=== PATIENT | female | born 1975 | race Two or more races ===

== ENCOUNTER 2019-08-20 22:41 | Emergency (ER) | payer OTHER ==
[2019-08-20 23:00] VITALS: BP 112/69; PULSE 72; TEMP 98.3; BMI 27.4
--- NOTE | 2019-08-21 00:53 | PDOC ---
Documentation entered by Mika Franco SCRIBE, acting as scribe for Elva Goldberg MD. Elva Goldberg MD: This documentation has been prepared by the jeanaibeSalvador Daniel, SCRIBE, under my direction and personally reviewed by me in its entirety. I confirm that the documentation accurately reflects all work, treatment, procedures, and medical decision making performed by me. History of Present Illness - General Chief Complaint: Vaginal Bleeding Stated Complaint: MISCARRIAGE Time Seen by Provider: 08/21/19 00:13 History Source: Patient Exam Limitations: No Limitations - History of Present Illness Initial Comments: 08/21/19 00:31 The patient is a 44 year old A1 female with a past medical history of myomectomy here today for evaluation of vaginal bleeding. The patient reports that she noticed some red spotting after wiping a couple of days ago but became concerned when she saw some blood in the toilet bowl today. She also notes some abdominal cramping. The patient reports that she is approximately 7 weeks and that her LMP was on 06/29. Patient denies headache, lightheadedness. Denies fever, chills. Denies chest pain, shortness of breath. Denies nausea, vomiting, diarrhea. Allergies: NKA Social history: Denies tobacco use. Confirms occasional alcohol use. OB: Sylwia Bowers Past History - Past Medical History Allergies/Adverse Reactions: Allergies Allergy/AdvReac Type Severity Reaction Status Date / Time No Known Allergies Allergy Verified 08/20/19 23:00 Home Medications: Ambulatory Orders Loratadine [Claritin -] 10 mg PO DAILY #30 tablet 09/01/15 COPD: No - Psycho Social/Smoking Cessation Hx Smoking History: Never smoked Have you smoked in the past 12 months: No Information on smoking cessation initiated: No Hx Alcohol Use: Yes Drug/Substance Use Hx: No Review of Systems - Review of Systems Able to Perform ROS?: Yes Comments:: 08/21/19 00:36 CONSTITUTIONAL: Absent: fever, chills, diaphoresis, generalized weakness, malaise, loss of appetite HEENT: Absent: rhinorrhea, nasal congestion, throat pain, throat swelling, difficulty swallowing, mouth swelling, ear pain, eye pain, visual Changes CARDIOVASCULAR: Absent: chest pain, syncope, palpitations, irregular heart rate, lightheadedness , peripheral edema RESPIRATORY: Absent: cough, shortness of breath, dyspnea with exertion, orthopnea, wheezing, stridor, hemoptysis GASTROINTESTINAL: +abdominal cramping. Absent: abdominal distension, nausea, vomiting, diarrhea, constipation, melena, hematochezia GENITOURINARY: +vaginal bleeding. Absent: dysuria, frequency, urgency, hesitancy, hematuria, flank pain, genital pain MUSCULOSKELETAL: Absent: myalgia, arthralgia, joint swelling SKIN: Absent: rash, itching, pallor HEMATOLOGIC/IMMUNOLOGIC: Absent: easy bleeding, easy bruising, lymphadenopathy, frequent infections ENDOCRINE: Absent: unexplained weight gain, unexplained weight loss, heat intolerance, cold intolerance NEUROLOGIC: Absent: headache, focal weakness or paresthesias, dizziness, unsteady gait, seizure, mental status changes, bladder or bowel incontinence PSYCHIATRIC: Absent: anxiety, depression, suicidal or homicidal ideation, hallucinations. *Physical Exam - Vital Signs Last Vital Signs Temp Pulse Resp BP Pulse Ox 98.3 F 72 18 112/69 100 08/20/19 22:57 08/20/19 22:57 08/20/19 22:57 08/20/19 22:57 08/20/19 22:57 - Physical Exam 08/21/19 00:37 GENERAL: Well developed, well nourished. Awake and alert. No acute distress. HEENT: Normocephalic, atraumatic. PERRLA, EOMI. No conjunctival pallor. Sclera are non- icteric. Moist mucous membranes. Oropharynx is clear. NECK: Supple. Full ROM. No JVD. Carotid pulses 2+ and symmetric, without bruits. No thyromegaly. No lymphadenopathy. CARDIOVASCULAR: Regular rate and rhythm. No murmurs, rubs, or gallops. Distal pulses are 2+ and symmetric. PULMONARY: No evidence of respiratory distress. Lungs clear to auscultation bilaterally. No wheezing, rales or rhonchi. ABDOMINAL: Soft. Non-tender. Non-distended. No rebound or guarding. No organomegaly. Normoactive bowel sounds. : deferred. MUSCULOSKELETAL Normal range of motion at all joints. No bony deformities or tenderness. No CVA tenderness. EXTREMITIES: No cyanosis. No clubbing. No edema. No calf tenderness. SKIN: Warm and dry. Normal capillary refill. No rashes. No jaundice. NEUROLOGICAL: Alert, awake, appropriate. Cranial nerves 2-12 intact. No deficits to light touch and temperature in face, upper extremities and lower extremities. No motor deficits in the in face, upper extremities and lower extremities. Normoreflexic in the upper and lower extremities. Normal speech. Toes are down- going bilaterally. Gait is normal without ataxia. PSYCHIATRIC: Cooperative. Good eye contact. Appropriate mood and affect. ED Treatment Course - LABORATORY CBC & Chemistry Diagram: 08/21/19 00:42 Medical Decision Making - Medical Decision Making 08/21/19 00:53 44-year-old female 2 para 0 miscarriage 1 presents with vaginal spotting She states that her last menstrual period was June 29 of this year and she was seen by a woman to woman and had a positive test. She has seen Dr. Bowers at that time. She came today because she noted some vaginal spotting. Past medical history significant for fibroids She does not take any prescription medications at this time She denies any allergies Social history she does not smoke tobacco, in the past she is occasional use alcohol Her bleeding does not require any sanitary napkins at this time 08/21/19 02:03 Transvaginal ultrasound probable early IUP prior to visualization of yolk sac or pole Ultrasound measures 11.6 cm Small cystic structure in the endometrium likely gestational sac No yolk sac or pole Multiple fibroids are noted measuring up to 6.3 cm in the anterior uterine body body Recommend follow-up ultrasound to ensure viability and exclude any possibility of ectopic Fibroids 08/21/19 02:05 Type and screen pending impression threatened AB/early Patient to have repeat ultrasound and beta-hCG in 48 hours Discharge - Discharge Information Problems reviewed: Yes Clinical Impression/Diagnosis: Threatened Condition: Stable - Follow up/Referral Referrals: Sylwia Bowers DO [Staff Physician] - - Patient Discharge Instructions Patient Printed Discharge Instructions: DI for Threatened Additional Instructions: please continue your care Return in 48 hours or see your information technology auditor in 2 days for repeat bhcg and ultrasound - Post Discharge Activity
[2019-08-21 01:14] LABS: BASO % 0.7 % (0-2.0); HEMATOCRIT 37.8 % (32.4-45.2); HEMOGLOBIN 12.5 GM/dL (10.7-15.3); LYMPH % 25.5 % (8-40); MCH 28.1 pg (25.7-33.7); MEAN CELL VOLUME 85.1 fl (80-96); MEAN PLT VOLUME 7.1 fl (7.5-11.1); MONO % 8.3 % (3.8-10.2); NEUT % 59.5 % (42.8-82.8); PLATELET COUNT 300 K/MM3 (134-434); RBC 4.44 M/mm3 (3.60-5.2); RDW 13.6 % (11.6-15.6); WHITE BLOOD COUNT 5.7 K/mm3 (4.0-10.0)
== END 2019-08-21 03:02 | disposition home or self-care (01) ==
LOC: JER 22:41
DX: O26.891 Other specified pregnancy related conditions, first trimester (principal); O20.0 Threatened abortion; O34.11 Maternal care for benign tumor of corpus uteri, first trimester; D25.9 Leiomyoma of uterus, unspecified; Z3A.01 Less than 8 weeks gestation of pregnancy
CPT/HCPCS: 36415; 76817-TC; 84702; 85025; 86850; 86900; 86901; 99282-25

== ENCOUNTER 2019-08-23 20:06 | Emergency (ER) | payer OTHER ==
[2019-08-23 20:12] VITALS: BP 105/67; PULSE 90; TEMP 97.7; BMI 27.8
--- NOTE | 2019-08-23 21:57 | PDOC ---
Documentation entered by Radha Richey SCRIBE, acting as scribe for Solo Osuna MD. Solo Osuna MD: This documentation has been prepared by the Rossi reardon Adrianna, SCRIBE, under my direction and personally reviewed by me in its entirety. I confirm that the documentation accurately reflects all work, treatment, procedures, and medical decision making performed by me. Attending Attestation - Resident Resident Name: Brooklyn Reyes - ED Attending Attestation I have performed the following: I have examined & evaluated the patient, The case was reviewed & discussed with the resident, I agree w/resident's findings & plan, Exceptions are as noted - HPI HPI: 08/23/19 21:55 Patient is a 44-year-old female, 2 para 0, LMP 06/29/2019 presents with continuous vaginal bleeding without associated abdominal cramping/nausea/ vomiting/fever/chills. Patient seen in this ER 48 hours previously noted to have beta-hCG of 1500 with no definitive IUP on transvaginal ultrasound. Patient instructed to return for repeat beta-hCG evaluation. - Physicial Exam PE: 08/23/19 21:56 Patient is awake and alert, well-nourished, in no distress Normocephalic, atraumatic PERRLA, EOMI conjunctiva pink CTA RRR Abdomen soft, nontender, nondistended - Medical Decision Making 08/23/19 21:56 44-year-old female presents with recurrent vaginal bleeding. Will obtain beta- hCG. If decreasing, will discharge with likely diagnosis of miscarriage with outpatient [facility] follow-up.
--- NOTE | 2019-08-23 22:40 | PDOC ---
History of Present Illness - General Chief Complaint: Vaginal Bleeding Stated Complaint: FOLLOW UP Time Seen by Provider: 08/23/19 20:54 - History of Present Illness Initial Comments: 08/24/19 01:20 HPI: 44 y/o F with hx of myomectomy presenting for followup for vaginal bleeding. Patient was here 2 days ago with recent and has been having vaginal bleeding. bHCG found to be 1500 and US with no pole or gestational sac seen. Patient has had continued bleeding for the past 2 days. Reports streaking on 3 pads daily with clots. Also reports subrapubic cramping without radiation of pain. No chest pain, SOB, LH, MATHEW, syncope PMHx: as noted above ROS: as noted SHx: Denies tobacco use; occasional alcohol use; no rec drugs Allergies: NKDA ROS: GENERAL/CONSTITUTIONAL: No fever or chills. No weakness. HEAD, EYES, EARS, NOSE AND THROAT: No change in vision. No ear pain or discharge. No sore throat. CARDIOVASCULAR: No chest pain or shortness of breath RESPIRATORY: No cough, wheezing, or hemoptysis. GASTROINTESTINAL: No nausea, vomiting, diarrhea or constipation. GENITOURINARY: No dysuria, frequency, or change in urination. MUSCULOSKELETAL: No joint or muscle swelling or pain. No neck or back pain. SKIN: No rash NEUROLOGIC: No headache, vertigo, loss of consciousness, or change in strength/ sensation. ENDOCRINE: No increased thirst. No abnormal weight change HEMATOLOGIC/LYMPHATIC: No anemia, easy bleeding, or history of blood clots. ALLERGIC/IMMUNOLOGIC: No hives or skin allergy. PE: GENERAL: Awake, alert, and fully oriented, no acute distress HEAD: No signs of trauma, normocephalic, atraumatic EYES: EOMI, sclera anicteric, conjunctiva clear ENT: Auricles normal inspection, hearing grossly normal, nares patent, oropharynx clear without exudates. Moist mucosa NECK: Normal ROM, no lymphadenopathy LUNGS: No increased work of breathing, symmetrical chest rise, clear to auscultation bilaterally, no wheezes, crackles or rhonchi HEART: Regular rate and rhythm, normal S1 and S2, no murmur, peripheral pulses 2 + and equal bilaterally. ABDOMEN: Soft, nondistended, nontender. No guarding, no rebound. No masses. No CVAT MUSCULOSKELETAL: Normal inspection, FROM NEUROLOGICAL: Cranial nerves II through XII grossly intact. Normal speech, normal gait, no focal sensorimotor deficits SKIN: Warm, Dry, normal turgor, no rashes or lesions noted Past History - Past Medical History Allergies/Adverse Reactions: Allergies Allergy/AdvReac Type Severity Reaction Status Date / Time No Known Allergies Allergy Verified 08/20/19 23:00 Home Medications: Ambulatory Orders Loratadine [Claritin -] 10 mg PO DAILY #30 tablet 09/01/15 COPD: No - Reproductive History Cervical CA: No Dysfunctional Uterine Bleeding: No Ectopic : No Endometrial CA: No Polycystic Ovaries: No Tubal Ligation: No - Psycho Social/Smoking Cessation Hx Smoking History: Never smoked Have you smoked in the past 12 months: No Hx Alcohol Use: Yes ("sometimes") Drug/Substance Use Hx: No *Physical Exam - Vital Signs Last Vital Signs Temp Pulse Resp BP Pulse Ox 97.7 F 90 18 105/67 99 08/23/19 20:08 08/23/19 20:08 08/23/19 20:08 08/23/19 20:08 08/23/19 20:08 Medical Decision Making - Medical Decision Making 08/24/19 01:27 44 y/o F with hx of myomectomy presenting for repeat bHCG given vaginal bleeding and recent bHCG 1500 and no findings on US -quant bHCG 08/24/19 01:28 bHCG 777 down from 1500; consistent with spontaneous will DC home with return pcxns and Ob followup; patient with appt for Wednesday and will proceed with appt unless any concerning symptoms will return to ED all questions addressed Discharge - Discharge Information Problems reviewed: Yes Clinical Impression/Diagnosis: Vaginal bleeding, Spontaneous miscarriage Condition: Stable Disposition: HOME - Follow up/Referral - Patient Discharge Instructions Patient Printed Discharge Instructions: DI for Miscarriage, DI for Vaginal Bleeding During Additional Instructions: Additional Instructions: Please return to the emergency department with any new or worsening symptoms or concerns including significant bleeding, abdominal pain, fainting, severe lightheadedness Please follow up with your scheduled Ob on Wednesday for further management of likely miscarriage Please ensure adequate hydration and nutrition. - Post Discharge Activity
== END 2019-08-23 22:56 | disposition home or self-care (01) ==
LOC: JER 20:06
DX: O26.891 Other specified pregnancy related conditions, first trimester (principal); O03.9 Complete or unspecified spontaneous abortion without complication; Z3A.01 Less than 8 weeks gestation of pregnancy
CPT/HCPCS: 36415; 84702; 99282-25

== ENCOUNTER 2020-04-06 14:24 | Emergency (ER) | payer OTHER ==
[2020-04-06 14:31] VITALS: BP 121/75; PULSE 75; TEMP 98.3; BMI 27.4
[2020-04-06] MEDS ORDERED: SILVER SULFADIAZINE 1% TOP CREAM 50 GM JAR TP ONE ×3 (14:45→14:51)
--- NOTE | 2020-04-06 14:56 | PDOC ---
History of Present Illness - General Chief Complaint: Burn Stated Complaint: LT ARM BURN Time Seen by Provider: 04/06/20 14:31 History Source: Patient Exam Limitations: Clinical Condition - History of Present Illness Initial Comments: 04/06/20 15:00 Patient with no significant past medical history present with complaint of pain to left forearm status post accidentally spilling hot water on left forearm 1 hour ago. Patient reported burning sensation to skin of left distal forearm. Denies any open wounds. Denies numbness or tingling sensation. Denies any other symptoms. Patient did not take anything for symptoms Timing/Duration: reports: just prior to arrival Past History - Medical History Allergies/Adverse Reactions: Allergies Allergy/AdvReac Type Severity Reaction Status Date / Time No Known Allergies Allergy Verified 04/06/20 14:27 Home Medications: Ambulatory Orders NK [No Known Home Medication] 12/30/19 COPD: No - Reproductive History Is Patient Now?: No Cervical CA: No Dysfunctional Uterine Bleeding: No Ectopic : No Endometrial CA: No Polycystic Ovaries: No Tubal Ligation: No - Psycho-Social/Smoking History Smoking History: Never smoked Have you smoked in the past 12 months: No - Substance Abuse Hx (Audit-C & DAST Scrn) How often the patient has a drink containing alcohol: Never Score: In Men: 4 or > Positive; In Women: 3 or > Positive: 0 Screen Result (Pos requires Nsg. Audit-10AR): Negative In the last yr the pt used illegal drug/Rx for NonMed reason: No Score: Yes response is considered Positive: 0 Screen Result (Positive result requires Nsg. DAST-10): Negative Review of Systems - Review of Systems Able to Perform ROS?: Yes Is the patient limited Occitan proficient: No Constitutional: No: Chills, Fever, Malaise HEENTM: No: Symptoms Reported Respiratory: No: Symptoms reported Cardiac (ROS): No: Symptoms Reported Musculoskeletal: Yes: Symptoms Reported, See HPI, Muscle Pain (burning sensation to left forearm) Integumentary: Yes: Symptoms Reported, See HPI, Erythema (burn to left foream) Neurological: No: Paresthesia, Tingling All Other Systems: Reviewed and Negative *Physical Exam - Vital Signs Last Vital Signs Temp Pulse Resp BP Pulse Ox 98.3 F 75 20 121/75 99 04/06/20 14:27 04/06/20 14:27 04/06/20 14:27 04/06/20 14:27 04/06/20 14:27 - Physical Exam 04/06/20 15:02 GENERAL: Well developed, well nourished. Awake and alert. No acute distress. NECK: Supple. Full ROM. PULMONARY: No evidence of respiratory distress. MUSCULOSKELETAL Normal range of motion at all joints. EXTREMITIES: No cyanosis. No clubbing. No edema. SKIN: Warm and dry. Normal capillary refill. 2 cm area of superficial skin redness consistent with first-degree burn to plantar-ulnar aspect of left distal forearm. No open wounds. NEUROLOGICAL: Alert, awake, appropriate. Gait is normal without ataxia. PSYCHIATRIC: Cooperative. Good eye contact. Appropriate mood General Appearance: Yes: Nourished, Appropriately Dressed. No: Apparent Distress ED Treatment Course - Medications Given in the ED: ED Medications Discontinued Medications Generic Name Dose Route Start Last Admin Trade Name Freq PRN Reason Stop Dose Admin Silver Sulfadiazine 1 applic 04/06/20 14:45 04/06/20 14:52 Silvadene - TP 04/06/20 14:46 1 applic ONCE ONE Administration Medical Decision Making - Medical Decision Making 04/06/20 15:01 Patient with no significant past medical history present with complaint of pain to left forearm status post accidentally spilling hot water on left forearm 1 hour ago. Patient reported burning sensation to skin of left distal forearm. Denies any open wounds. Denies numbness or tingling sensation. Denies any other symptoms. Patient did not take anything for symptoms Exam significant for 2 cm area of superficial skin redness consistent with first-degree burn to plantar-ulnar aspect of left distal forearm. No open wounds. Otherwise normal exam. Silvadene cream applied to superficial burn. Patient stable for discharge on Silvadene cream for infection prophylaxis and help with burn with follow-up with PCP Discharge - Discharge Information Problems reviewed: Yes Clinical Impression/Diagnosis: First degree burn of left forearm Qualifiers: Encounter type: initial encounter Qualified Code(s): T22.112A - Burn of first degree of left forearm, initial encounter Condition: Stable Disposition: HOME - Admission No - Follow up/Referral Referrals: [facility] [place] [facility] [Provider Group] - Patient Discharge Instructions Patient Printed Discharge Instructions: How to Take Care of a Burn, DI for Rubio Additional Instructions: Remove gauze wrap from forearm after 24 hours. Apply provided Silvadene cream to wound twice a day for at least 5 days to prevent infection. Follow-up referred primary care as needed - Post Discharge Activity Work/Back to School Note: Back to Work
== END 2020-04-06 15:05 | disposition home or self-care (01) ==
LOC: JERFT 14:24 → JER 14:24 → JERFT 15:05
DX: T22.112A Burn of first degree of left forearm, initial encounter (principal)
CPT/HCPCS: 99283-25

== ENCOUNTER 2020-07-15 04:34 | Inpatient (IN) | payer OTHER ==
[2020-07-12 10:22] VITALS: BMI 29.2
[2020-07-15] MEDS ORDERED: VASOPRESSIN 20 UNITS/ML VIAL IV ONE (09:37)
[2020-07-15] MEDS ORDERED: ceFAZolin 2 GRAM PREMIX BAG IVPB ONE (09:51)
[2020-07-15] MEDS ORDERED: CEFAZOLIN 2 GM/D5W 2 GM/50 ML ML IVPB ONE (10:00)
[2020-07-15] MEDS ORDERED: MIDAZOLAM HCL 2 MG/2 ML SINGLE DOSE VIAL ONE ×2 (10:08)
[2020-07-15] MEDS ORDERED: BUPIVACAINE LIPOSOME/PF (EXPAREL) 266 MG/20 ML VIAL ONE (10:10)
[2020-07-15] MEDS ORDERED: ceFAZolin SODIUM 1 GM VIAL IVPB ONE (10:40)
[2020-07-15] MEDS ORDERED: ROCURONIUM BROMIDE 100 MG/10 ML VIAL ONE (11:29)
[2020-07-15] MEDS ORDERED: ONDANSETRON 4 MG/2 ML VIAL IVPUSH PRN (11:58)
[2020-07-15] MEDS ORDERED: oxyCODONE HCL 5 MG TABLET PO PRN (11:59)
[2020-07-15] MEDS ORDERED: traMADol HCL 50 MG TABLET PO PRN (11:59)
[2020-07-15] MEDS ORDERED: NEOSTIGMINE METHYLSULFATE 0.5 MG/ML - 10 ML MDV ONE (12:28)
[2020-07-15] MEDS: LACTATED RINGERS SOLUTION 1,000 ML IV SCH (14:30)
[2020-07-15] MEDS: oxyCODONE HCL 5 MG TABLET PO PRN (16:27)
[2020-07-15] MEDS: CEFAZOLIN 2 GM/D5W 2 GM/50 ML ML IVPB SCH (17:29)
[2020-07-15] MEDS: ACETAMINOPHEN 325 MG TABLET (FP) PO SCH (18:29)
[2020-07-15] MEDS: oxyCODONE HCL 10 MG SUSTAINED ACTING TABLET PO SCH (22:17)
[2020-07-16] MEDS: LACTATED RINGERS SOLUTION 1,000 ML IV SCH (00:19)
[2020-07-16] MEDS: ACETAMINOPHEN 325 MG TABLET (FP) PO SCH ×5 (00:27→18:23)
[2020-07-16] MEDS: CEFAZOLIN 2 GM/D5W 2 GM/50 ML ML IVPB SCH ×2 (02:02→09:18)
[2020-07-16] MEDS: oxyCODONE HCL 5 MG TABLET PO PRN ×2 (04:06→11:34)
[2020-07-16 08:13] LABS: BASO % 0.3 % (0-2.0); EOS % 0.2 % (0-4.5); HEMATOCRIT 33.1 % (32.4-45.2); HEMOGLOBIN 10.9 GM/dL (10.7-15.3); LYMPH % 12.9 % (8-40); MCH 27.9 pg (25.7-33.7); MEAN CELL VOLUME 84.4 fl (80-96); MEAN PLT VOLUME 7.5 fl (7.5-11.1); MONO % 9.9 % (3.8-10.2); NEUT % 76.7 % (42.8-82.8); PLATELET COUNT 278 K/MM3 (134-434); RBC 3.92 M/mm3 (3.60-5.2); RDW 13.3 % (11.6-15.6); WHITE BLOOD COUNT 9.1 K/mm3 (4.0-10.0)
[2020-07-16 08:46] LABS: POTASSIUM 3.8 mmol/L (3.5-5.1)
[2020-07-16 08:50] LABS: ALBUMIN 2.6 g/dl (3.4-5.0); BLOOD UREA NITROGEN 7.1 mg/dL (7-18); CALCIUM 8.3 mg/dL (8.5-10.1)
[2020-07-16 08:53] LABS: CREATININE 0.7 mg/dL (0.55-1.3)
[2020-07-16 08:55] LABS: BILIRUBIN,TOTAL 1.7 mg/dL (0.2-1)
[2020-07-16] MEDS: oxyCODONE HCL 10 MG SUSTAINED ACTING TABLET PO SCH ×2 (09:18→21:21)
[2020-07-16] MEDS: ENOXAPARIN NA (PORCINE) 40 MG/0.4 ML DISP.SYRIN SQ SCH (13:05)
[2020-07-16 23:21] VITALS: PULSE 89
[2020-07-17] MEDS: ACETAMINOPHEN 325 MG TABLET (FP) PO SCH ×3 (00:10→12:10)
[2020-07-17] MEDS ORDERED: BISACODYL 10 MG SUPP.RECT PR ONE (06:45)
[2020-07-17] MEDS: oxyCODONE HCL 10 MG SUSTAINED ACTING TABLET PO SCH (10:05)
[2020-07-17] MEDS: ENOXAPARIN NA (PORCINE) 40 MG/0.4 ML DISP.SYRIN SQ SCH (10:05)
[2020-07-17 11:30] VITALS: BP 101/62; TEMP 98.9
== END 2020-07-17 13:32 | disposition home or self-care (01) | DRG 743 ==
LOC: J2C 04:34 → J3W 16:00
PROVIDERS: ADMIT Obstetrics & Gynecology; ATTEND Obstetrics & Gynecology
PROC: 0DNW0ZZ Release Peritoneum, Open Approach (ICD-10-PCS; 2020-07-15)
PROC: 0UB90ZZ Excision of Uterus, Open Approach (ICD-10-PCS; principal; 2020-07-15 10:00)
DX: D25.9 Leiomyoma of uterus, unspecified (principal); N94.6 Dysmenorrhea, unspecified; K66.0 Peritoneal adhesions (postprocedural) (postinfection)
CPT/HCPCS: 36415; 80053; 84703; 85025; 86922; 88305-TC; 94010; 94760

== ENCOUNTER 2021-04-03 07:26 | Emergency (ER) | payer OTHER ==
[2021-04-03] MEDS ORDERED: ACETAMINOPHEN 500 MG TABLET (FP) PO ONE (07:56)
[2021-04-03] MEDS ORDERED: ACETAMINOPHEN 500 MG TABLET (FP) ONE (08:10)
[2021-04-03 08:26] VITALS: BP 113/59; PULSE 57; TEMP 97.9; BMI 27.1
== END 2021-04-03 08:40 | disposition home or self-care (01) ==
LOC: JER 07:26
DX: S93.402A Sprain of unspecified ligament of left ankle, initial encounter (principal)
CPT/HCPCS: 73610-TC-LT-FY; 99284-25

== ENCOUNTER 2023-12-18 06:22 | Emergency (ER) | payer OTHER ==
[2023-12-18 06:30] VITALS: BP 127/80; PULSE 72; RESP 19; TEMP 98; BMI 26.3
[2023-12-18] MEDS ORDERED: LORATADINE 10 MG TABLET ONE (07:26)
[2023-12-18] MEDS ORDERED: AMOX TR/POT CLAV 875MG/125MG TABLETS (FP) ONE (07:27)
[2023-12-18] MEDS: AMOX TR/POT CLAV 875MG/125MG TABLETS (FP) PO ONE (07:33)
[2023-12-18] MEDS: LORATADINE 10 MG TABLET PO ONE (07:33)
== END 2023-12-18 08:06 | disposition home or self-care (01) ==
LOC: JER 06:22
DX: J02.9 Acute pharyngitis, unspecified (principal); H92.02 Otalgia, left ear; R05.9 Cough, unspecified; H66.92 Otitis media, unspecified, left ear; T78.40XA Allergy, unspecified, initial encounter; Z20.822 Contact with and (suspected) exposure to COVID-19
CPT/HCPCS: 0241U-QW; 87651; 99283-25

== ENCOUNTER 2024-06-15 05:59 | Emergency (ER) | payer OTHER ==
[2024-06-15 06:08] VITALS: BP 105/81; PULSE 72; RESP 18; TEMP 98.2; BMI 26.3
[2024-06-15] MEDS ORDERED: diphenhydrAMINE HCL 25 MG CAPSULE (FP) PO ONE (06:55)
[2024-06-15] MEDS: diphenhydrAMINE HCL 25 MG CAPSULE (FP) PO ONE (06:59)
[2024-06-15] MEDS ORDERED: predniSONE 10 MG TABLET (UD) ONE (08:27)
[2024-06-15] MEDS ORDERED: predniSONE 20 MG TABLET (UD) ONE (08:27)
[2024-06-15] MEDS: predniSONE 20 MG TABLET (UD) PO ONE (09:01)
== END 2024-06-15 09:01 | disposition home or self-care (01) ==
LOC: JER 05:59
DX: L50.0 Allergic urticaria (principal); L29.9 Pruritus, unspecified; R21 Rash and other nonspecific skin eruption; K13.0 Diseases of lips
CPT/HCPCS: 99283-25